=== PATIENT | male | born 1955 | race American Indian/Alaskan Native ===

== ENCOUNTER 2016-10-01 11:28 | Observation (INO) | payer OTHER ==
[2016-10-01] MEDS ORDERED: ANCEF/STERILE WATER 2 GM/20 ML 2 GM/20 ML SYRINGE IV NR (12:00)
[2016-10-01 12:12] LABS: Basophils % (Auto) 1.1 % (0.0-1.8); Eosinophils % (Auto) 1.4 % (0.0-4.3); Hematocrit 36.1 % (35.5-45.6); Hemoglobin 12.3 gm/dl (11.8-15.2); Mean Corpuscular HGB Conc 34 % (32-34); Mean Corpuscular Hemoglobin 36 pg (28-32); Mean Corpuscular Volume 105 fl (84-94); Platelet Count 118 K/mm3 (140-440); Red Blood Count 3.43 M/mm3 (3.65-5.03); Red Cell Distribution Width 14.5 % (13.2-15.2); White Blood Count 4.6 K/mm3 (4.5-11.0)
[2016-10-01 12:23] LABS: INR 1.04 (0.87-1.13)
[2016-10-01 12:24] LABS: Partial Thromboplastin Time 28.6 Sec. (24.2-36.6)
[2016-10-01 12:28] LABS: Anion Gap 11 mmol/L; BUN/Creatinine Ratio 14.28; Blood Urea Nitrogen 10 mg/dL (9-20); Calcium 9.5 mg/dL (8.4-10.2); Carbon Dioxide 32 mmol/L (22-30); Glucose 106 mg/dL (75-100); Potassium 4.4 mmol/L (3.6-5.0); Sodium 142 mmol/L (137-145)
[2016-10-01] MEDS ORDERED: NACL 0.9% 1,000 ML, VANCOMYCIN VIAL 1,000 MG IR ONE (12:30)
[2016-10-01] MEDS: NACL 0.45% 1000 ML 1,000 ML IV SCH (13:15)
[2016-10-01] MEDS: SUBLIMAZE ONE ×3 (13:30→14:33)
[2016-10-01] MEDS: XYLOCAINE 2% INFILTRATI ONE ×2 (13:31→14:24)
[2016-10-01] MEDS: MARCAINE 0.5% INFILTRATI ONE ×2 (13:31→14:24)
[2016-10-01] MEDS: MARCAINE 0.25% INFILTRATI ONE ×2 (13:31→14:24)
[2016-10-01] MEDS: VERSED ONE ×3 (13:31→14:33)
[2016-10-01] MEDS: ANCEF/STERILE WATER 2 GM/20 ML 2 GM/20 ML SYRINGE IV ONE ×2 (13:33→13:50)
[2016-10-01] MEDS: NACL 0.9% 500 ML IR ONE ×2 (13:33→14:24)
--- NOTE | 2016-10-01 15:40 | Event Note ---
Date: 10/01/16 Pt underwent dual chamber permanent pacemaker without apparent complications. Will start low dose sotalol for atrial fibrillation suppression and check ECG in AM. If QTc is stable, OK to diacharge tomorrow. Prescribe following at time of discharge: 1. Keflex 500 tid x 3 days. 2. Percocet 5/325 q 6 hours prn [place] (10 tabs) 3. Sotalol 80 mg bid. Chapin Flores MD
[2016-10-01] MEDS: CARAFATE PO SCH ×2 (17:18→21:55)
[2016-10-01] MEDS: NORCO 5/325 PO PRN (18:30)
--- NOTE | 2016-10-01 21:03 | Admit Criteria Form ---
Admission Criteria Documentation: TELEMETRY CARE Telemetry Admission Guidelines (Place 'X' for any and all applicable criteria): Admission to telemetry [A] may be indicated for ANY ONE of the following(1)(2)(3 )(4)(5): [ X]I. Cardiac disease, including ANY ONE of the following (9)(10)(11)(12)( 13): [ ]a) Postacute WA [ ]b) Low-risk patients with ST-segment elevation WA who have undergone successful percutaneous coronary intervention [ ]c) Unstable angina [ ]d) Suspected WA (until it is ruled out) [ ]e) Post cardiac surgery (first 48 to 72 hours unless complications occur) [ ]f) Acute arrhythmias (including significant tachycardia or bradycardia) [B] [ ]g) Firing of an implantable cardioverter defibrillator [C] [ ]h) Suspected pacemaker or implantable cardioverter defibrillator malfunction (10) [ ]i) New administration or adjustment of an antiarrhythmic drug [D ] [ ]j) Child admitted for acute congestive heart failure [ ]j) Long QT syndrome [ ]k) Advanced heart block (eg, second-degree Mobitz type II, third- degree heart block) [ ]l) Acute myocarditis or pericarditis [ X]m) Short-term (ambulatory or inpatient) monitoring after a cardiac procedure as indicated by ANY ONE of the following [E]: [ ]i) Electrophysiologic studies [ ]ii) Percutaneous coronary intervention with stent placement [ X]iii) Pacemaker placement with cardiac conduction defect [ ]iv) Implantable cardiac defibrillator placement [ ]II. Drug overdose or poisoning with substance that causes arrhythmias or QT prolongation (eg, phenothiazines, sympathomimetic agents, cyclic antidepressants, digitalis, antiarrhythmic drugs)(15) [ ]III. Short-term (ambulatory or inpatient) monitoring after therapeutic or diagnostic procedure requiring conscious sedation or anesthesia (eg, endoscopy, elective cardioversion) [ ]IV. Acute cerebrovascular even[F](18) [ ]V. Massive blood transfusion (eg, at least 10 units of packed red blood cells in 24 hours) [ ]. Variceal bleeding after endoscopy, sclerotherapy, or IV vasopressin [ ]VII. Uncorrected electrolyte abnormalities associated with an increased risk of dangerous arrhythmia [G]; examples include [ ]a) Hyperkalemia with attributable ECG changes [ ]b) Potassium greater than 6.5 mmol/L (mEq/L) in a patient without history of chronic renal disease [ ]c) Prolonged QT attributed to hypokalemia, hypomagnesemia, or hypocalcemia [ ]VIII.Unexplained syncope or other neurologic event suspected of being due to arrhythmia due to a finding that increases risk; examples include(19)(20)(21): [ ]a) High-risk ECG findings (eg, bifascicular block, bradycardia, abnormal QT interval, ventricular pre- excitation) [ ]b) History of previous syncope due to arrhythmia [ ]c) Abnormal ventricular function (eg, reduced ejection fraction ) [ ]d) Exertional or supine syncope [ ]e) Concerning syncope characteristics (eg, sudden loss of consciousness without prodrome) [ ]f) Family history of sudden [ ]g) Use of arrhythmogenic medication [ ]h) Suspected cardiac ischemia [ ]i) Known channelopathy (eg, long QT syndrome, Brugada syndrome, or catecholaminergic paroxysmal ventricular tachycardia) [ ]j) Known structural heart disease (eg, hypertrophic cardiomyopathy , severe valvular disease) [ ]k) Palpitations preceding syncope The original [employer] content created by [employer] has been revised. The portions of the content which have been revised are identified through the use of italic text or in bold, and [employer] has neither reviewed nor approved the modified material. All other unmodified content is copyright [employer]. Please see references footnoted in the original [employer] edition 2016 Admission Criteria Met: Yes
[2016-10-01] MEDS: ANCEF/NS 1 GM/50 ML 1 GM/50 ML BAG IV SCH (21:54)
[2016-10-01] MEDS: MORPHINE IV PRN (21:56)
[2016-10-01] MEDS: ZOVIRAX PO SCH (21:57)
[2016-10-01] MEDS ORDERED: PEPCID PO SCH (22:00)
[2016-10-01] MEDS ORDERED: NON-FORMULARY (Famotidine [Pepcid] 40 MG) PO SCH (22:00)
[2016-10-01] MEDS ORDERED: NEURONTIN PO SCH (22:00)
[2016-10-01] MEDS ORDERED: ACYCLOVIR 400 MG PO SCH (22:00)
[2016-10-02] MEDS: NORCO 5/325 PO PRN ×2 (00:09→09:03)
[2016-10-02] MEDS: ANCEF/NS 1 GM/50 ML 1 GM/50 ML BAG IV SCH (05:35)
[2016-10-02] MEDS: NACL 0.45% 1000 ML 1,000 ML IV SCH (05:36)
[2016-10-02] MEDS: MORPHINE IV PRN (05:36)
[2016-10-02 07:00] LABS: Basophils % (Auto) 0.5 % (0.0-1.8); Eosinophils % (Auto) 1.4 % (0.0-4.3); Hemoglobin 12.4 gm/dl (11.8-15.2); Mean Corpuscular HGB Conc 35 % (32-34); Mean Corpuscular Hemoglobin 36 pg (28-32); Mean Corpuscular Volume 105 fl (84-94); Platelet Count 104 K/mm3 (140-440); Red Blood Count 3.44 M/mm3 (3.65-5.03); Red Cell Distribution Width 13.9 % (13.2-15.2); White Blood Count 4.8 K/mm3 (4.5-11.0)
[2016-10-02 08:58] VITALS: BP 129/84
[2016-10-02] MEDS: ZOVIRAX PO SCH (09:03)
[2016-10-02] MEDS: CARAFATE PO SCH (09:04)
--- NOTE | 2016-10-02 09:54 | Short Stay Summary ---
Short Stay Documentation Date of service: 10/02/16 - History H&P: obtained from office - Allergies and Medications Current Medications: Allergies ondansetron HCl [From Zofran (as hydrochloride)] Adverse Reaction (Verified 05/09 12:29) Unknown bradycardia T Allergy (Severe, Uncoded 10/05/14 18:10) ALLERGIC TO SURGICAL TAPE/ TAKE PT SKIN OFF TAKES PT SKIN OFF. tape Allergy (Severe, Uncoded 10/05/14 22:20) Rash takes pt skin off Home Medications Medication Instructions Recorded Confirmed Last Taken Type Acyclovir [Acyclovir] 400 mg PO BID 10/01/16 10/01/16 09/30/16 History Famotidine [Pepcid] 40 mg PO QHS 10/01/16 10/01/16 09/30/16 History Furosemide [Lasix] 20 mg PO QDAY 10/01/16 10/01/16 09/30/16 History Gabapentin [Gabapentin] 300 mg PO QHS 10/01/16 10/01/16 09/30/16 History Omeprazole [Omeprazole] 40 mg PO DAILY 10/01/16 10/01/16 09/30/16 History Potassium Chloride [Klor-Con M20] 20 meq PO BID 10/01/16 10/01/16 09/30/16 History Sucralfate [Sucralfate] 1 gm PO QID 10/01/16 10/01/16 09/30/16 History Active Medications Acetaminophen/Hydrocodone Bitart ([place] 5/325) 1 each PO Q6H PRN PRN Reason: Pain, Moderate (4-6) Last Admin: 10/02/16 09:03 Dose: 1 each Acyclovir (Zovirax) 400 mg PO BID [facility] Last Admin: 10/02/16 09:03 Dose: 400 mg Famotidine (Pepcid) 40 mg PO QHS [facility] Last Admin: 10/01/16 21:56 Dose: 40 mg Gabapentin (Neurontin) 300 mg PO QHS [facility] Last Admin: 10/01/16 21:57 Dose: 300 mg Sodium Chloride (Nacl 0.45% 1000 Ml) 1,000 mls @ 50 mls/hr IV DIRECT [facility] Last Admin: 10/02/16 05:36 Dose: 50 mls/hr Morphine Sulfate (Morphine) 2 mg IV Q6H PRN PRN Reason: Pain, Moderate (4-6) Last Admin: 10/02/16 05:36 Dose: 2 mg Sucralfate (Carafate) 1 gm PO QID [facility] Last Admin: 10/02/16 09:04 Dose: 1 gm - Physical exam General appearance: no acute distress HEENT: PERRLA Lungs: Clear to auscultation Heart: Other (paced) - Brief post op/procedure progress note Procedure: Pt underwent dual chamber permanent pacemaker without apparent complications. Condition: stable - Hospital course Hospital course: Stable overnight observation post pacemaker implant. Normal function on device interrogation. Post operative ECG shows a atrial paced rhythm with a stable QTc of 396. - Disposition Condition at discharge: Good Disposition: DISCHARGED TO HOME OR SELFCARE Short Stay Discharge Plan Activity: other (Post Pacemaker instructions) Diet: low fat, low cholesterol, low salt Special Instructions: keep arm in sling for 72 hours Follow up with: CYNDI MUHAMMAD MD [Primary Care Provider] - 7 Days LEIAN SIFUENTES MD [Staff Physician] - 7 Days Prescriptions: Cephalexin [Keflex] 500 mg PO Q8HR #9 cap HYDROcodone/APAP 5-325 [El[place] 5-325 mg TAB] 1 each PO Q6H PRN #10 tablet PRN Reason: Pain, Moderate (4-6) Sotalol [Betapace] 80 mg PO Q12HR #60 tablet
--- NOTE | 2016-10-02 10:54 | XRay Report ---
AP chest x-ray. Findings: The heart and ulnar vessels are normal. The lungs are clear. Median sternotomy sutures are present. A bipolar pacemaker is in good position. A right central line terminates in the lower SVC. Impression: No acute findings.
== END 2016-10-02 11:29 | disposition home or self-care (01) ==
LOC: OPU 11:28 → 4A 13:59
PROVIDERS: ADMIT Internal Medicine Cardiovascular Disease; ATTEND Internal Medicine Cardiovascular Disease
DX: I49.5 Sick sinus syndrome (principal); I48.0 Paroxysmal atrial fibrillation; E78.5 Hyperlipidemia, unspecified; I10 Essential (primary) hypertension; C83.10 Mantle cell lymphoma, unspecified site; I25.810 Atherosclerosis of coronary artery bypass graft(s) without angina pectoris
CPT/HCPCS: 33208; 36415; 71010; 80048; 85025; 85610; 85730; 93005; 93010; 96365; 96375; 96376; C1779; C1781; C1785; C1892; G0378; J0690; J2250; J2270; J3010; J3370